=== PATIENT | female | born 1960 | race Caucasian/White ===

== ENCOUNTER 2024-03-26 09:26 | Emergency (ER) | payer MEDICARE, SELFPAY ==
[2024-03-26 09:29] VITALS: BP 133/56
[2024-03-26 09:51] VITALS: BMI 38.7
[2024-03-26] MEDS: TORADOL 30 MG IM (11:13)
--- NOTE | 2024-03-26 11:49 | ED.GENMED ---
History of Present Illness
General
Chief Complaint: Musculo-Skeletal Complaint
Source: patient and spouse
Exam Limitations: none
Time Seen by Provider: 03/26/24 09:43
Nursing documentation reviewed up to this point in time: agreed with
History of Present Illness
History of Present Illness:
63-year-old female past medical history of hypertension presenting to the emergency department today with concerns of left-sided hip pain over the past few days. Worse with ambulation and movement. Has had multiple previous orthopedic surgeries
including the right hip and bilateral knees. She denies any overlying skin changes redness swelling warmth or fevers.
Past History
Past History
ED Past Surgical History: Cholecystectomy, and Orthopedic
Review of Systems
Review of Systems
Allergies reviewed?: Yes
All Other Systems: ROS reviewed and negative except as documented in HPI and ROS
Phy Exam
Physical Exam
Physical Exam:
GENERAL: Alert , in no apparent distress
EYE: pupils equal and reactive
NECK: Supple, no significant adenopathy.
ENT: o/p clr, mmm.
CARDIAC: Regular rate and rhythm .
LUNGS: Clear breath sounds bilaterally, no acute respiratory distress, no wheezes/rales/rhonchi
ABDOMEN: Soft, without focal tenderness, no r/g, no cvat
NEUROLOGICAL: Alert and oriented, no focal neuro deficits
SKIN: Warm and dry, skin intact. No overlying skin changes to the left hip
MUSCULOSKELETAL: No edema, well perfused. Good range of motion and strength of the lower extremities bilaterally.
PSYCH: Normal and appropriate interaction.
Course
Orders/Labs/Results
Orders:
Orders
03/26/24 09:51
Hip, Left 2-3 Views [CR Hip - LT w/wo Pel 2-3 Vw*] Urgent
Comment:
Reason For Exam: left hip pain
Include a pelvis x-ray?: Yes
03/26/24 10:45
Ketorolac [Toradol] 30 mg IM NOW STA
Pt Eval And Treat Urgent
Activity Level: Ambulate
Vital Signs
Initial and Last Documented VS:
Initial Vital Signs
Temp Pulse Resp BP Pulse Ox
98.5 F 74 18 133/56 99
03/26/24 09:29 03/26/24 09:29 03/26/24 09:29 03/26/24 09:29 03/26/24 09:29
Last Documented Vital Signs
Temp Pulse Resp BP Pulse Ox
98.5 F 74 18 133/56 99
03/26/24 09:29 03/26/24 09:29 03/26/24 09:29 03/26/24 09:29 03/26/24 09:29
MDM/Problems Addressed
MDM/Problems Addressed:
3-year-old female presenting to the emergency department today with concerns of left-sided hip pain gradually worsening over the past few days denies any specific injuries. Does have a history of osteoarthritis. X-ray without signs of fracture no
redness swelling or warmth no signs of infection no systemic symptoms or fever. Patient able to ambulate generally well-appearing stable for outpatient follow-up w/ orthopedics. Return precautions given.
*Critical Care Note
Total Time (30-74mins, 75-104mins- exclusive of procedures): Not Applicable
ED Attending Note
-
Portions of this chart may have been created with voice recognition software.� Occasional wrong word or��sound alike� substitutions may have occurred due to the inherent limitations of voice recognition software.
Discharge Plan
Departure
Patient Disposition: Home (Routine Discharge)
Date of Disposition: 03/26/24
Time of Disposition: 11:53
Patient with high blood pressure during this ER visit?: No
Condition: Good
Covid-19: Not Applicable
Discharge Problem:
Hip pain, left
Instructions: Hip Pain ED
Prescriptions:
No Action
metronidazole 500 MG tablet
500 mg PO TID Qty: 30 0RF
levofloxacin 500 MG tablet
500 mg PO DAILY Qty: 10 0RF
Referrals:
Allen Rodriguez MD [Family Provider] -
Activity Restrictions/Additional Instructions:
You came to the emergency department today with concerns of left-sided hip discomfort. Your x-ray did not show any emergent injury. Please rest ice and engage in light activity for hopeful improvement over the next few days. Please help closely
with your orthopedic doctor. Return to the emergency department for any worsening, new or concerning symptoms.
Interventions
Interventions:
*Risk Screen - Suicide Last Done: 03/26/24 09:27
*General Assessment Last Done: 03/26/24 09:27
*Neglect/Abuse Screening Last Done: 03/26/24 09:27
ED- Fall Risk Assessment Last Done: 03/26/24 09:51
*ED COVID-19 Vaccine History Last Done: 03/26/24 09:27
ED-Musculoskeletal Assessment Last Done: 03/26/24 09:51
Discharge Date and Time
Print Language: MICRONESIAN
[2024-03-26 12:16] VITALS: BP 132/68
== END 2024-03-26 12:17 | disposition home or self-care (01) ==
LOC: EMR 09:26
PROVIDERS: EMERGENCY PHYSICIAN Emergency Medicine; FAMILY PHYSICIAN Internal Medicine
DX: M25.552 Pain in left hip (principal); I10 Essential (primary) hypertension
CPT/HCPCS: 99284; 96372; 73502

== ENCOUNTER → 2025-07-01 12:01 | Outpatient (REF) | payer MEDICARE, SELFPAY | LOC: DHSLP 12:01 | PROVIDERS: ATTENDING PHYSICIAN Internal Medicine; FAMILY PHYSICIAN Internal Medicine | DX: G47.33 Obstructive sleep apnea (adult) (pediatric) (principal) | CPT/HCPCS: 95800 ==